=== PATIENT | female | born 1940 ===

== ENCOUNTER 2016-09-03 07:23 | Inpatient (IN) | payer MEDICARE ==
[2016-08-26 07:12] VITALS: BMI 27.4
[2016-09-03] MEDS ORDERED: Propofol 10 mg/ml Inj (20 ML) ONE (08:31)
[2016-09-03] MEDS ORDERED: Bupivacaine/Epi 0.25%-1:200,000 10 ml PF inj IJ ONE (08:33)
[2016-09-03] MEDS ORDERED: Methylene Blue 10 mg/ml (1ml) Inj ONE (08:33)
[2016-09-03] MEDS ORDERED: Ciprofloxacin 400mg/200ml D5W 0 MG/0 ML BAG IVPB ONE (08:34)
[2016-09-03] MEDS ORDERED: Gentamicin 80 mg in 0.9% NS 0 MG/0 ML BAG IVPB ONE (08:34)
[2016-09-03] MEDS ORDERED: Clindamycin 2% Vaginal Cream(40 gm) ONE (08:35)
[2016-09-03] MEDS ORDERED: Bacitracin 50,000 UNIT in Sodium Chloride 0.9% Irrig 1,000 ML IR SCH (09:00)
[2016-09-03] MEDS ORDERED: Lactated Ringer's 1,000 ML IV ONE ×2 (09:30→10:44)
[2016-09-03] MEDS ORDERED: metroNIDAZOLE IV 500 mg/100 ml 500 MG/100 ML BAG ONE (09:30)
[2016-09-03] MEDS ORDERED: Neostigmine Methylsulfate 3mg/3ml Syringe IV ONE (11:14)
--- NOTE | 2016-09-03 11:21 | PCM.SURG1 ---
Surgeon's Initial Post Op Note - Surgeon's Notes Surgeon: jordan dias md Sustainability Coach: imelda mane md Type of Anesthesia: General Endo, Local Pre-Operative Diagnosis: rectocele. cystocele. urinary incontinence. fecal incontinence. chronic pelvic pain Operative Findings: stage 4 rectocele. stage 2 cystocele. perineal laxity. normal bladder anatomy as per cysto. hypermobile urethra. Detail description of the procedure. DESCRIPTION: This is a 75 years old female with long-standing and worsening symptoms of rectocele, cystocele, and fecal smearing, urinary urgency and pelvic pain. The patient is reporting leakage of feces as well as urine upon any exertion, coughing sneezing as well as vaginal bulge and pressure in the pelvis. In addition, she is not able to defecate without the aid of her fingers extracting feces; splinlting. For the past several years, these symptoms of involuntary leakage of urine and vaginal pressure have been worsening; she describes these symptoms as debilitating and adversely affecting her quality of life. A comprehensive urinary incontinence workup was completed which included a TVUS, multichannel complex urodynamic study, urinalysis and cultures. The preoperative workup supports a diagnosis of stress urinary incontinence along with urgency and detrusor instability and symptomatic rectocele and fecal incontinence. The patient failed conservative management which included Kegels exercises as well as lifestyle changes and other pelvic floor rehabilitation exercises. A prolong and detailed discussion about conservative versus surgical management of urinary incontinence and rectocele and fecal incontinence was completed. The patient elected to proceed with surgical management of her symptomatic rectocele, enterocele, and cystocele , sphincter laxity and urinary incontinence. A decision was made to proceed with AP vaginal repair with colpopexy and mid-urethral sling procedure using polypropylene mesh material and sphincteroplasty. After a detailed discussion regarding the pros and cons of sling procedure and the utilization of polypropylene mesh material, all risks were reviewed including but not limited to, risk of infection, mesh erosion, postoperative pain and dyspareunia. In addition, the FDA warning about mesh utilization for prolapse and incontinence surgery was reviewed in details, and a detailed and specific written informed consent was obtained. The patient elected to proceed with a Midurethral sling and prolapse repair today fully understanding and accepting the risks associated with utilizing polypropylene mesh material. Other alternatives were also offered to the patient, including a biological graft such as porcine sling as well as the patient owns fascia for sling material and prolapse repair, she elected to proceed with a primary repair of her rectocele with no mesh as well as a polypropylene mesh sling despite all the associated risks. After proper consent was obtained from the patient, patient was taken to the operating room, placed in the dorsolithotomy position; general anesthesia was obtained without difficulty. She was placed in the dorsal lithotomy position, her legs were placed in adjustable Bao stirrups, and careful attention was placed not to over flex or over rotates the lower extremities and the hip or knee joints. Saul catheter was inserted under sterile conditions. She was prepped and draped appropriately for a posterior colporhaphy, sphincteroplasty and mid- urethral sling procedure. A posterior longitudinal incision was made from the perineal body to the vagina. A sagittal incision was made in the vaginal epithelium in the posterior compartment beginning at the forchettte, moving proximally towards the apex of the vagina. Lateral dissection underneath the epithelium was performed, leaving a thick flap between the vagina and rectum. The vaginal epithelium was undermined to the vaginal apex, exposing the underlying rectocele and posterior compartment defect. Prior to the repair of the posterior defect, the rectal external sphincter was dissected off and in an interrupted fashion, the muscle was imbricated in multiple suture in a circular fashion using 2-0 vicryl suture material. This provided support and reinforcement of a sphincter which was disrupted likely during a prior episiotomy in the past. The muscle was re-approximated and imbricated without tension. Next, the posterior defect in the posterior wall was identified and multiple interrupted sutures using o vicryl material was used. The rectovaginal fascia was re-approximated all the way extending to the apex of the vagina. The rectocele was reduced under the approximation of endopelvic fascia. Redundant vaginal mucosa was excised and the vaginal incision was then closed using a running 2-0 Vicryl ligature. Perineoorphy was completed by recreating the perineal body with multiple 0 vycryl suture in interrupted suture. Careful approximation of the vaginal mucosa was performed. The anterior vaginal wall over the Midurethral area was grasped with a pair of Allis clamps and tenting the vaginal wall from the underlying urethra. Local anesthetic solution of 0.25% Marcaine with epinephrine diluted 1:1 was used to infiltrate the periurethral space. A total of 20 cc was utilized. Using a scalpel, a Midurethral vertical incision about 1 cm was made through the vaginal epithelium and periurethral fascia. Careful lateral sharp dissection using Metzenbaum scissors towards the inferior pubic ramus to eventually allow the sling graft to lie flat against the urethra. Next, the sling mesh was loaded onto the needle tip. The needle tip was inserted through one side of the incision towards the medial edge of the obturator foramen approximately 45 degrees of the horizontal plane. Using an arching motion, the needle tip was advanced through pushing the obturator internus muscle. The needle was released from the graft and loaded on the other side of the sling ready for deployment to the contralateral side. Ensuring the sling is flat on the urethra and not twisted, the needle was advanced in an arching motion towards the obturator internus muscle on the opposite site. Attention was readdressed to allow a flat placement with tension- free sling on the midurethra region. Following saline irrigation and good hemostasis was noted, the vaginal mucosa was closed with 2- 0 Vicryl in a locking fashion. At this time, the Saul catheter was removed and a diagnostic cystoscopy was performed. The bladder was distended with about 300 cc of fluid. Both ureteral orifices were noted to be fluxing urine normally. The trigone was normal. There were no noted abnormalities with any evidence of any compromise of the lower urinary tract with mesh material, sutures or instruments. The patient emerged from general anesthesia without any difficulty. The patient was taken to the recovery room in stable condition. Prior to incision patient received prophylactic antibiotics, prior to closure sponge lap and needle counts are correct x2. The 2-inch iodoform gauze vaginal packing was then placed to prevent hematoma formation underneath the vaginal mucosa. Needle, sponge, and instrument counts were correct. Post-Operative Diagnosis: same Operation Performed: A/P repair. colpopexy extraperitoneal. midurethral sling. perineoorphy. sphinctroplasy. cystosocpy Specimen/Specimens Removed: vaginal mucosa Estimated Blood Loss: EBL {In ML}: 50 Blood Products Given: N/A Drains Used: No Drains Post-Op Condition: Good Date of Surgery/Procedure: 09/03/16 Time of Surgery/Procedure: 11:21
[2016-09-03] MEDS ORDERED: Oxycodone/Acetaminophen 5/325 mg Tab PO PRN (11:22)
[2016-09-03] MEDS ORDERED: Morphine 4 MG/ML VIAL IVP PRN (11:22)
[2016-09-03] MEDS ORDERED: Gentamicin 80 mg in 0.9% NS 100 ML IVPB ONE (11:22)
[2016-09-03] MEDS ORDERED: HYDROmorphone 0.5 mg/0.5 ml ISec IVP PRN (11:23)
[2016-09-03] MEDS ORDERED: metroNIDAZOLE IV 500 mg/100 ml 500 MG/100 ML BAG IVPB STA (12:15)
[2016-09-03] MEDS ORDERED: metroNIDAZOLE IV 500 mg/100 ml 500 MG/100 ML BAG IVPB SCH (14:00)
[2016-09-03] MEDS: Clindamycin 600mg/50ml D5W 600 MG/50 ML VIAL IVPB SCH ×2 (14:00→20:46)
[2016-09-03] MEDS: Sodium Chloride 0.9% 1,000 ML IV SCH (14:00)
[2016-09-03 14:54] VITALS: PULSE 60; RESP 18
[2016-09-03] MEDS: metroNIDAZOLE IV 500 mg/100 ml 500 MG/100 ML BAG IVPB SCH (17:40)
[2016-09-04] MEDS: metroNIDAZOLE IV 500 mg/100 ml 500 MG/100 ML BAG IVPB SCH ×2 (01:45→10:07)
[2016-09-04] MEDS: Clindamycin 600mg/50ml D5W 600 MG/50 ML VIAL IVPB SCH (04:52)
[2016-09-04] MEDS: Sodium Chloride 0.9% 1,000 ML IV SCH (06:07)
[2016-09-04 07:47] LABS: HEMATOCRIT 34.9 % (34.0-47.0); MEAN CELL VOLUME 92.7 fL (81.0-99.0); MEAN CORPUSCULAR HEMOGLOBIN 30.4 pg (27.0-31.0); MEAN CORPUSCULAR HGB CONC 32.8 g/dL (33.0-37.0); MEAN PLATELET VOLUME 10.2 fL (7.2-11.7); RED CELL DISTRIBUTION WIDTH 13.7 % (11.5-14.5)
[2016-09-04 07:55] LABS: WHITE BLOOD COUNT 12.8 K/uL (4.8-10.8)
[2016-09-04 17:38] VITALS: BP 109/58; TEMP 98.4; O2SAT 98
== END 2016-09-04 17:30 | disposition home or self-care (01) | DRG 747 ==
LOC: C.SDS 07:23 → C.4M 11:22 → MERGE 09-04 07:45
PROVIDERS: ADMIT Obstetrics & Gynecology; ATTEND Obstetrics & Gynecology
PROC: 0USG0ZZ Reposition Vagina, Open Approach (ICD-10-PCS; 2016-09-03)
PROC: 0TSD0ZZ Reposition Urethra, Open Approach (ICD-10-PCS; 2016-09-03)
PROC: 0TJB8ZZ Inspection of Bladder, Via Natural or Artificial Opening Endoscopic (ICD-10-PCS; 2016-09-03)
PROC: 0WQN0ZZ Repair Female Perineum, Open Approach (ICD-10-PCS; principal; 2016-09-03 09:55)
PROC: 0JQC0ZZ Repair Pelvic Region Subcutaneous Tissue and Fascia, Open Approach (ICD-10-PCS; 2016-09-03 09:55)
DX: N81.6 Rectocele (principal); N36.41 Hypermobility of urethra; N81.89 Other female genital prolapse; N81.10 Cystocele, unspecified; N39.41 Urge incontinence; N39.46 Mixed incontinence; N81.81 Perineocele; R15.2 Fecal urgency

== ENCOUNTER 2017-08-13 09:46 | Day surgery (SDC) | payer MEDICARE ==
[2017-08-05 09:20] VITALS: BMI 28.3
[2017-08-13] MEDS ORDERED: Clindamycin 2% Vaginal Cream(40 gm) ONE (11:19)
[2017-08-13] MEDS ORDERED: ceFAZolin 1 gm FROZEN Premix 0 GM/0 ML ML IVPB ONE (11:19)
[2017-08-13] MEDS ORDERED: Sodium Chloride 0.9% 20 ML IV ONE (11:19)
[2017-08-13] MEDS ORDERED: Bupivacaine-Epi 0.5%-1:200,000 PF Inj IJ ONE (11:21)
[2017-08-13] MEDS ORDERED: Bacitracin 50,000 UNIT in Sodium Chloride 0.9% Irrig 1,000 ML IR SCH (11:30)
[2017-08-13] MEDS ORDERED: Ciprofloxacin 400mg/200ml D5W 400 MG/200 ML BAG IVPB ONE (11:48)
[2017-08-13] MEDS ORDERED: Propofol 10 mg/ml Inj (20 ML) ONE (12:03)
[2017-08-13] MEDS ORDERED: Midazolam 2 MG/2 ML VIAL ONE (12:03)
--- NOTE | 2017-08-13 13:13 | PCM.OP ---
Operative Report - Operative Report Date of Surgery/Procedure: 08/13/17 Time of Surgery/Procedure: 13:10 Surgeon: Caridad Khan MD Scissors Grinder: none Anesthesia/Sedation: Gen with ET tube Pre-Operative Diagnosis: Abnormal vaginal bleeding. vaginal granuloma. Urethral polyp Post-Operative Diagnosis: Abnormal vaginal bleeding. vaginal granuloma. Urethral polyp Indication for Surgery: worsening chronic abnormal vaginal bleeding. large vaginal grnulation tissue on posterior vaginal wall. large aborting urethral polyp with urinary urgency Operative Findings: worsening chronic abnormal vaginal bleeding. large vaginal grnulation tissue on posterior vaginal wall. large aborting urethral polyp with urinary urgency Procedure/Operation Description: Excision of vaginal wall granuloma. Excisoin of urethral polyp. Diagnostic cystoscopy. Detail of operative report. This is a 76 years old female with severe chronic pelvic pain, significant abnormal vaginal bleeding, and mixed urinary incontinence. The patient completed a robotic-assisted hysterectomy and a recent past and developed a granuloma along the posterior vaginal wall as well as colpotomy incision which lead to abnormal vaginal bleeding despite conservative management following surgery. In addition, the patient had a urethral polyp likely leading to urinary frequency and urgency. A decision was finally made to proceed with an excision of vaginal granuloma as well as excision of urethral polyp as well as diagnostic cystoscopy. A detailed description of this procedure was given to the patient, other alternative surgical therapies were reviewed, all risks and benefits of this surgical modality was reviewed, and printed material was also given to the patient regarding vaginal surgery. The patient fully understood all the risks and benefits and elected to proceed with this proposed procedure. After proper consent was obtained from the patient was taken to the operating room, proper patient identification was completed. She was placed in dorsal lithotomy position; general anesthesia was induced without difficulty. Her legs were placed in adjustable Bao stirrups. Careful attention was placed avoiding over-flexion or rotation the lower extremities at the hip or the knee joints. She was prepped and draped appropriately for a vaginal procedure. Saul catheter was inserted under sterile conditions. Local anesthetic solution of cortical percent Marcaine with epinephrine diluted 121 was used to infiltrate the area of the posterior vaginal wall from which to granuloma was originating. An elliptical incision around the granuloma was made, and in a meticulous fashion to granuloma was excised utilizing a scalpel as well as Bovie cautery device. This granuloma was labeled appropriately and sent to pathology. Then narrowed base of this granuloma only required several interrupted sutures utilizing 2-0 Vicryl sutures to close this defect. Excellent hemostasis was noted. Attention was then turned to the patients urethra where an aborting polyp was noted. Prior to this excision of polyp diagnostic cystoscopy was completed, which showed normal bladder anatomy, and no other pathology noted inside the bladder as well as along the urethra. The polyp aborting from the urethral meatus was originating from the urethral vaginal junction. Local anesthetic solution was utilized to infiltrate the base of the polyp. Saul catheter was inserted and kept in situ during the excision of this polyp. Sharp and blunt dissection was utilized to carefully excise this polyp. Multiple interrupted suture material utilizing 5-0 Monocryl in interrupted fashion was utilized to repair the incision sites of this polyp. Careful attention was placed to avoid narrowing of the urethral meatus. Excellent hemostasis was noted throughout the procedure. Due to the complexity of this procedure, a repeat diagnostic cystoscopy was completed following the repair as well as excision of polyp and granuloma. The Saul catheter was removed, the bladder was distended with approximately 350 cc of normal saline. A 30 degree cystoscope was introduced and a survey of the bladder anatomy was completed. The base, and the dome of the bladder appeared normal, both ureteral orifices appeared normal and were efluxing urine freely. The urethra appeared normal. A Saul catheter was reinserted. Vaginal packing was inserted to be removed the next morning. Patient emerged from general anesthesia without difficulty, and was taken to recovery room in stable condition. Prior to incision the patient received antibiotics, prior to closure sponge lap and needle counts were correct x2 . Estimated Blood Loss: 5 Blood Replaced: none Sponge/Instrument Count: count correct times 2 Drains: none Complications: none Specimen: vaginal granuloma. urethral polyp Discharge & Condition: as per criteria
[2017-08-13] MEDS ORDERED: Sodium Chloride 0.9% 1,000 ML IV SCH (13:15)
[2017-08-13] MEDS ORDERED: Morphine 4 MG/ML VIAL IVP PRN (13:15)
[2017-08-13] MEDS ORDERED: Oxycodone/Acetaminophen 5/325 mg Tab PO PRN (13:15)
[2017-08-13] MEDS: HYDROmorphone 0.5 mg/0.5 ml ISec IVP PRN ×2 (13:35→13:44)
[2017-08-13 14:28] VITALS: PULSE 70
[2017-08-13] MEDS ORDERED: DiphenhydrAMINE 50 mg/ml Inj ONE (14:35)
[2017-08-13] MEDS ORDERED: DiphenhydrAMINE 50 mg/ml Inj IVP STA (14:36)
[2017-08-13 17:16] VITALS: BP 126/56; RESP 20; TEMP 97.8; O2SAT 99
== END 2017-08-13 17:18 | disposition home or self-care (01) ==
LOC: C.SDS 09:46
PROVIDERS: ATTEND Obstetrics & Gynecology
DX: N36.2 Urethral caruncle (principal); N93.9 Abnormal uterine and vaginal bleeding, unspecified; A58 Granuloma inguinale; R35.0 Frequency of micturition
CPT/HCPCS: 53260; 58999; 88305; C2615; J0744; J1170; J1200; J2001; J2250; J2405; J2704; J3010

== ENCOUNTER 2017-11-18 07:33 | Observation (INO) | payer MEDICARE ==
[2017-11-18 07:33] VITALS: BMI 28.3
[2017-11-18] MEDS ORDERED: Sodium Chloride 0.9% 1,000 ML IV ONE (08:21)
[2017-11-18 09:09] LABS: BASO % 0.4 % (0.0-2.0); EOS # 0.1 K/uL (0.0-0.7); EOS % 1.2 % (0.0-4.0); HEMOGLOBIN 13.5 g/dL (11.0-16.0); LYMPH # 1.6 K/uL (1.0-4.3); LYMPH % 18.8 % (20.0-40.0); MEAN CELL VOLUME 91.8 fL (81.0-99.0); MEAN CORPUSCULAR HEMOGLOBIN 30.8 pg (27.0-31.0); MEAN CORPUSCULAR HGB CONC 33.5 g/dL (33.0-37.0); MEAN PLATELET VOLUME 9.8 fL (7.2-11.7); MONO # 0.4 K/uL (0.0-0.8); MONO % 4.2 % (0.0-10.0); NEUT # 6.4 K/uL (1.8-7.0); NEUT % 75.4 % (50.0-75.0); RBC 4.37 Mil/uL (3.80-5.20); RED CELL DISTRIBUTION WIDTH 12.6 % (11.5-14.5); WHITE BLOOD COUNT 8.5 K/uL (4.8-10.8)
[2017-11-18] MEDS ORDERED: Sodium Chloride 0.9% 1,000 ML ONE (09:15)
[2017-11-18 09:19] LABS: CALCIUM 9.3 mg/dl (8.6-10.4); GFR NON-AFRICAN AMERICAN > 60
[2017-11-18 09:20] LABS: ALB/GLOB RATIO 1.4 (1.0-2.1); ALBUMIN 4.3 g/dL (3.5-5.0); ALT/SGPT 23 U/L (9-52); AST/SGOT 38 U/L (14-36); BLOOD UREA NITROGEN 16 mg/dL (7-17)
[2017-11-18 09:20] LABS: SQUAMOUS EPITHIAL 26 /hpf (0-5); URINE BACTERIA OCC (<OCC); URINE BILIRUBIN NEGATIVE (NEGATIVE); URINE BLOOD 3+ (NEGATIVE); URINE CLARITY Hazy (Clear); URINE COLOR Yellow (YELLOW); URINE GLUCOSE (UA) NORMAL (Normal); URINE LEUKOCYTE ESTERASE 3+ Leu/uL (Negative); URINE PROTEIN NEGATIVE (NEGATIVE); URINE UROBILINOGEN NORMAL mg/dL (0.2-1.0)
--- NOTE | 2017-11-18 09:59 | CT ---
Date of service: 11/18/2017 PROCEDURE: CT HEAD WITHOUT CONTRAST. HISTORY: lightheaded, dizzy. vomiting COMPARISON: None available. TECHNIQUE: Axial computed tomography images were obtained through the head/brain without intravenous contrast. Radiation dose: Total exam DLP = 878.71 mGy-cm. This CT exam was performed using one or more of the following dose reduction techniques: Automated exposure control, adjustment of the mA and/or kV according to patient size, and/or use of iterative reconstruction technique. FINDINGS: HEMORRHAGE: No intracranial hemorrhage. BRAIN: Normal melara-white matter differentiation and density are appreciated throughout the cerebrum and cerebellum with the brainstem appearing unremarkable as well. There is no mass effect. There is no suspicious extra-axial fluid collection and the midline brain anatomy appears diffusely unremarkable. VENTRICLES: Unremarkable. No hydrocephalus. CALVARIUM: Unremarkable. PARANASAL SINUSES: Unremarkable as visualized. No significant inflammatory changes. MASTOID AIR CELLS: Unremarkable as visualized. No inflammatory changes. OTHER FINDINGS: None. IMPRESSION: Unremarkable noncontrast head CT. Clinically correlate with any for potential follow-up CT or MRI.
--- NOTE | 2017-11-18 10:03 | C.PDOC ---
History Of Present Illness The patient is a 77-year-old female, with pacemaker, who underwent extraction of her left upper tooth yesterday. Patient states she took Tramadol at around 1930 yesterday and again at 0100 today for the pain. Patient was asymptomatic upon waking this morning, but then developed lightheadedness, nausea and generalized weakness as the day progressed. Patient also reports having several episodes of vomiting. She denies abdominal pain, chest pain and shortness of breath. Time Seen by Provider: 11/18/17 07:52 Chief Complaint (Nursing): Weakness/Neurological Deficit History Per: Patient History/Exam Limitations: no limitations Onset/Duration Of Symptoms: Hrs Current Symptoms Are (Timing): Still Present Associated Symptoms Preceding Syncopal Episode: No Predromal Symptoms (Sudden Onset) Possible Causative Factor(s): New Medications Additional History Per: Patient Past Medical History Reviewed: Historical Data, Nursing Documentation, Vital Signs Vital Signs: Last Vital Signs Temp 98.1 F 11/19/17 07:00 Pulse 70 11/19/17 08:02 Resp 20 11/19/17 07:00 BP 122/74 11/19/17 07:00 Pulse Ox 95 11/20/17 09:36 - Medical History PMH: Atrial Fibrillation, Cardia Arrhythmia (atrial fibrillation dx 3 yrs ago), HTN Surgical History: Pacemaker - [facility] Procedures CYSTOSCOPY NEC (07/13/14) INSPECTION OF BLADDER, ENDO (09/03/16) REPAIR FEMALE PERINEUM, OPEN APPROACH (09/03/16) REPAIR PELVIC SUBCU/FASCIA, OPEN APPROACH (09/03/16) REPOSITION URETHRA, OPEN APPROACH (09/03/16) REPOSITION VAGINA, OPEN APPROACH (09/03/16) Family History: States: Unknown Family Hx - Social History Hx Alcohol Use: No Hx Substance Use: No - Immunization History Hx Tetanus Toxoid Vaccination: No Review Of Systems Constitutional: Positive for: Weakness Cardiovascular: Negative for: Chest Pain Respiratory: Negative for: Shortness of Breath Gastrointestinal: Positive for: Nausea, Vomiting. Negative for: Abdominal Pain Neurological: Positive for: Other (lightheadedness ) Physical Exam - Physical Exam Appears: Non-toxic, No Acute Distress, Other (fatigued ) Skin: Normal Color, Warm, Dry Head: Atraumatic, Normacephalic Eye(s): bilateral: Normal Inspection Ear(s): Bilateral: Normal Oral Mucosa: Dry Teeth: Other (left upper tooth extracted) Gingiva: No Swelling Neck: Supple Chest: Symmetrical, No Deformity, No Tenderness, Other (pacemaker noted to left chest wall ) Cardiovascular: Rhythm Regular, No Murmur Respiratory: Normal Breath Sounds, No Rales, No Rhonchi, No Wheezing Gastrointestinal/Abdominal: Soft, No Tenderness, No Guarding, No Rebound Extremity: Normal ROM, Capillary Refill (less than 2 seconds ) Neurological/Psych: Oriented x3, Normal Speech, Normal Cognition, Normal Cranial Nerves, No Cerebellar Signs, Normal Motor, Normal Sensation, Other ( normal [id number], normal heel- kang) ED Course And Treatment - Laboratory Results Result Diagrams: 11/19/17 11:17 11/19/17 06:35 Interpretation Of ECG: Dual-paced rhythm at 71bpm. Rate From EC O2 Sat by Pulse Oximetry: 95 (on RA) Pulse Ox Interpretation: Normal - CT Scan/US CT Head Other Rad Studies (CT/US): Read By Radiologist, Radiology Report Reviewed CT/US Interpretation: PROCEDURE: CT HEAD WITHOUT CONTRAST. HISTORY: lightheaded, dizzy. vomiting. COMPARISON: None available. TECHNIQUE: Axial computed tomography images were obtained through the head/brain without intravenous contrast. Radiation dose: Total exam DLP = 878.71 mGy-cm. This CT exam was performed using one or more of the following dose reduction techniques: Automated exposure control, adjustment of the mA and/or kV according to patient size, and/or use of iterative reconstruction technique. FINDINGS: HEMORRHAGE: No intracranial hemorrhage. BRAIN: Normal melara-white matter differentiation and density are appreciated throughout the cerebrum and cerebellum with the brainstem appearing unremarkable as well. There is no mass effect. There is no suspicious extra-axial fluid collection and the midline brain anatomy appears diffusely unremarkable. VENTRICLES: Unremarkable. No hydrocephalus. CALVARIUM: Unremarkable. PARANASAL SINUSES: Unremarkable as visualized. No significant inflammatory changes. MASTOID AIR CELLS: Unremarkable as visualized. No inflammatory changes. OTHER FINDINGS: None. IMPRESSION: Unremarkable noncontrast head CT. Clinically correlate with any for potential follow-up CT or MRI. Medical Decision Making Medical Decision Making: Impression: 77 year old female with lighteadedness, generalized weakness, nausea , vomiting Plan: * bloodwork * urinalysus * CT Head * EKG * reassess and disposition Progress: bloodwork, urinalysis, CT Head and EKG ordered and reviewed. Bloodwork results are indicative of urinary tract infection. Case discussed with Dr Taylor, will admit to tele for lightheadedness and Urinary tract infection. Disposition Discussed With .: Hieu Taylor Doctor Will See Patient In The: Hospital - Disposition Disposition: HOSPITALIZED Disposition Time: 11:48 Condition: GOOD - Clinical Impression Clinical Impression: Lightheadedness, UTI (urinary tract infection), Dizziness - PA / IMAGING SERVICES DIRECTOR / Resident Statement MD/DO has reviewed & agrees with the documentation as recorded. - Scribe Statement The provider has reviewed the documentation as recorded by the Scribe (Nikki Pepe) All medical record entries made by the Scribe were at my direction and personally dictated by me. I have reviewed the chart and agree that the record accurately reflects my personal performance of the history, physical exam, medical decision making, and the department course for this patient. I have also personally directed, reviewed, and agree with the discharge instructions and disposition.
[2017-11-18] MEDS ORDERED: Ciprofloxacin 200mg/100ml D5W 100 ML IVPB STA (11:46)
[2017-11-18] MEDS ORDERED: Ciprofloxacin 400mg/200ml D5W 400 MG/200 ML BAG IVPB SCH (14:30)
[2017-11-18 14:59] VITALS: RESP 20
--- NOTE | 2017-11-18 16:07 | CP.PCM.HP ---
<Aurelio Roman - Last Filed: 11/18/17 16:33> History of Present Illness - History of Present Illness History of Present Illness: PGY-1 History and Physical [address] Dr[address] Taylor Patient is a 77 year old female with a past medical history of HTN and Atrial Fibrillation (s/p pacemaker placement January 2017) who presents to the ED with chief complaint of dizziness, nausea, and vomiting . Pt reports that last night she had a tooth pulled by her dentist because it was cracked through to the root. She was given Tramadol for pain relief which she took last night around 730 pm, and at 130 am when she woke from sleep secondary to tooth ache. This was her first time taking Tramadol. She had last eaten prior to her tooth extraction, around lunch time. This morning at 6 am after she took a shower, she had sudden onset of dizziness feeling as though she was spinning and also feeling lighteaded and faint, did not pass out. This was associated with nausea and non-bloody, non-bilious vomiting x 6 episodes. She notes the dizziness is worse with movement and improved with laying down. She denies chest pain, abdominal pain, palpitations, fevers, chills, headaches, changes in vision, new trauma, diarrhea, constipation, bloody stools, hematuria, urinary urgency or new/worsening urinary frequency. She has chronic urinary frequency throughout the night (x several months). At time of admission she reports that she is dizzy, but the sensation is not as severe as it was upon arrival in the ED prior to treatment with fluids and Zofran. She notes the pain in her tooth has not recurred since her last dose of Tramadol at 130 am. PMH: HTN, Atrial Fibrillation (Dual chamber PM placed January 2017) Medications: Amlodipine 2.5 mg PO qd, Vitamin D 50,000 q7d, previously on Savaysa for AFib PSH: Bladder prolapse repair, Hysterectomy Social History: Denies smoking (quit when young), alcohol, drugs Family History: DM (mom and 4 brothers) Allergies: PCN (rash/weakness) Present on Admission - Present on Admission Any Indicators Present on Admission: No Review of Systems - Constitutional Constitutional: Fatigue, Weakness. absent: Fever, Headache - EENT Eyes: absent: Blurred Vision, Change in Vision Nose/Mouth/Throat: absent: Nasal Congestion, Nasal Discharge, Sinus Pain - Cardiovascular Cardiovascular: absent: Chest Pain, Dyspnea, Dyspnea on Exertion - Respiratory Respiratory: absent: Cough, Dyspnea - Gastrointestinal Gastrointestinal: Nausea, Vomiting. absent: Abdominal Pain, Diarrhea Additional comments: Denies flank or suprapubic pain - Genitourinary Genitourinary: Urinary Frequency (+urinary frequency for several months). absent: Change in Urinary Stream, Difficulty Urinating, Dysuria, Flank Pain, Pyuria, Urinary Urgency, Freq UTI - Musculoskeletal Musculoskeletal: absent: Back Pain, Joint Swelling, Muscle Weakness, Numbness, Tingling - Neurological Neurological: Dizziness, Weakness. absent: Abnormal Gait, Confusion, Numbness, Headaches, Loss of Vision, Memory Loss, Syncope (+pt has felt faint, but did not syncopize), Tingling, Tremor - Psychiatric Psychiatric: absent: Anxiety, Depression Past Patient History - Infectious Disease Hx of Infectious Diseases: None - Past Medical History & Family History Past Medical History?: Yes - Past Social History Smoking Status: Never Smoked - CARDIAC Hx Atrial Fibrillation: Yes Hx Cardia Arrhythmia: Yes (atrial fibrillation dx 3 yrs ago) Hx Hypertension: Yes Hx Pacemaker: Yes - HEMATOLOGICAL/ONCOLOGICAL Hx Blood Disorders: Yes Hx Shingles: Yes - MUSCULOSKELETAL/RHEUMATOLOGICAL Hx Musculoskeletal Disorders: No - GASTROINTESTINAL Hx Gastrointestinal Disorders: No - GENITOURINARY/GYNECOLOGICAL Hx Genitourinary Disorders: Yes Hx Incontinence: Yes (NO LONGER) - PSYCHIATRIC Hx Substance Use: No - SURGICAL HISTORY Hx Surgeries: Yes Hx Hysterectomy: Yes Other/Comment: laser varicose vein sx cystoscopy A/P REPAIR - ANESTHESIA Hx Anesthesia: Yes Hx Anesthesia Reactions: No Hx Malignant Hyperthermia: No Meds Allergies/Adverse Reactions: Allergies Allergy/AdvReac Type Severity Reaction Status Date / Time FISH Allergy Intermediate RASH Verified 11/18/17 07:51 Penicillins Allergy RASH Verified 11/18/17 07:51 hydromorphone AdvReac ITCHING Verified 11/18/17 07:51 SEAFOOD Allergy Intermediate RASH Uncoded 11/18/17 07:51 Physical Exam - Constitutional Appears: Non-toxic, No Acute Distress - Head Exam Head Exam: ATRAUMATIC, NORMAL INSPECTION - Eye Exam Eye Exam: EOMI, Normal appearance Pupil Exam: NORMAL ACCOMODATION, PERRL - ENT Exam ENT Exam: Mucous Membranes Moist, Normal Exam - Respiratory Exam Respiratory Exam: Clear to Auscultation Bilateral, NORMAL BREATHING PATTERN. absent: Decreased Breath Sounds - Cardiovascular Exam Cardiovascular Exam: REGULAR RHYTHM, +S1, +S2 - GI/Abdominal Exam GI & Abdominal Exam: Normal Bowel Sounds, Soft. absent: Tenderness - Extremities Exam Extremities exam: Positive for: normal capillary refill, normal inspection, pedal pulses present. Negative for: pedal edema - Neurological Exam Neurological exam: Alert, CN II-XII Intact, Normal Gait, Oriented x3, Reflexes Normal Additional comments: +motor strength fully intact, no pronator drift, normal finger to nose - Psychiatric Exam Psychiatric exam: Normal Affect, Normal Mood - Skin Skin Exam: Dry, Intact, Normal Color, Warm Results - Vital Signs Recent Vital Signs: Last Vital Signs Temp 98.2 F 11/18/17 15:38 Pulse 74 11/18/17 15:38 Resp 20 11/18/17 15:38 BP 123/73 11/18/17 15:38 Pulse Ox 96 11/18/17 15:38 - Labs Result Diagrams: 11/18/17 08:59 11/18/17 08:59 Labs: Laboratory Results - last 24 hr 11/18/17 11/18/17 11/18/17 07:41 08:59 08:59 WBC 8.5 RBC 4.37 Hgb 13.5 Hct 40.1 MCV 91.8 MCH 30.8 MCHC 33.5 RDW 12.6 Plt Count 220 MPV 9.8 Neut % (Auto) 75.4 H Lymph % (Auto) 18.8 L [place] % (Auto) 4.2 Eos % (Auto) 1.2 Baso % (Auto) 0.4 Neut # (Auto) 6.4 Lymph # (Auto) 1.6 [place] # (Auto) 0.4 Eos # (Auto) 0.1 Baso # (Auto) 0.0 Sodium 139 Potassium 4.6 Chloride 103 Carbon Dioxide 25 Anion Gap 15 BUN 16 Creatinine 0.5 L Est GFR ( Amer) > 60 Est GFR (Non-Af Amer) > 60 POC Glucose (mg/dL) 153 H Random Glucose 142 H Calcium 9.3 Total Bilirubin 1.6 H AST 38 H ALT 23 Alkaline Phosphatase 94 Troponin I < 0.0120 Total Protein 7.5 Albumin 4.3 Globulin 3.1 Albumin/Globulin Ratio 1.4 Urine Color Urine Clarity Urine pH Ur Specific [place] Urine Protein Urine Glucose (UA) Urine Ketones Urine Blood Urine Nitrate Urine Bilirubin Urine Urobilinogen Ur Leukocyte Esterase Urine WBC (Auto) Urine RBC (Auto) Ur Squamous Epith Cells Urine Bacteria 11/18/17 09:02 WBC RBC Hgb Hct MCV MCH MCHC RDW Plt Count MPV Neut % (Auto) Lymph % (Auto) [place] % (Auto) Eos % (Auto) Baso % (Auto) Neut # (Auto) Lymph # (Auto) [place] # (Auto) Eos # (Auto) Baso # (Auto) Sodium Potassium Chloride Carbon Dioxide Anion Gap BUN Creatinine Est GFR ( Amer) Est GFR (Non-Af Amer) POC Glucose (mg/dL) Random Glucose Calcium Total Bilirubin AST ALT Alkaline Phosphatase Troponin I Total Protein Albumin Globulin Albumin/Globulin Ratio Urine Color Yellow Urine Clarity Hazy Urine pH 7.0 Ur Specific [place] 1.012 Urine Protein Negative Urine Glucose (UA) Normal Urine Ketones Trace Urine Blood 3+ H Urine Nitrate Negative Urine Bilirubin Negative Urine Urobilinogen Normal Ur Leukocyte Esterase 3+ H Urine WBC (Auto) 23 H Urine RBC (Auto) 42 H Ur Squamous Epith Cells 26 H Urine Bacteria Occ H Assessment & Plan - Assessment and Plan (Free Text) Assessment: 1) Dizziness in patient with history of Atrial Fibrillation with dual chamber PM placed 01/2017 - IV Fluids at 80 mls/hour - Troponin x1 < 0.0120; PEREZ x 2 ordered q6h - EKG x 1 reviewed (paced rhythm evident); EKG x 2 q6h hours ordered - CT head reviewed - Unremarkable study with no evidence of hemorrhage - Cardiology Consult placed to Dr. Malcolm 2) Nausea - Zofran 4 mg PO q6h PRN 3) UTI - Ciprofloxacin 400 mg IV q12h scheduled (started 11/18/2017; to be completed 02/2018) 4) HTN - Amlodipine 2.5 mg PO qd 5) Vitamin D deficiency - Vitamin D 50,000 units q7d 6) Prophylaxis - DVT - Lovenox 40 sc qd scheduled, SCDs Assessment/plan discussed with Dr. Claudia Roman, PGY-1 <Hieu Taylor - Last Filed: 11/18/17 18:44> Results - Vital Signs Recent Vital Signs: Last Vital Signs Temp 98.2 F 11/18/17 15:38 Pulse 74 11/18/17 15:38 Resp 20 11/18/17 15:38 BP 123/73 11/18/17 15:38 Pulse Ox 96 11/18/17 15:38 - Labs Result Diagrams: 11/18/17 08:59 11/18/17 08:59 Labs: Laboratory Results - last 24 hr 11/18/17 11/18/17 11/18/17 07:41 08:59 08:59 WBC 8.5 RBC 4.37 Hgb 13.5 Hct 40.1 MCV 91.8 MCH 30.8 MCHC 33.5 RDW 12.6 Plt Count 220 MPV 9.8 Neut % (Auto) 75.4 H Lymph % (Auto) 18.8 L [place] % (Auto) 4.2 Eos % (Auto) 1.2 Baso % (Auto) 0.4 Neut # (Auto) 6.4 Lymph # (Auto) 1.6 [place] # (Auto) 0.4 Eos # (Auto) 0.1 Baso # (Auto) 0.0 Sodium 139 Potassium 4.6 Chloride 103 Carbon Dioxide 25 Anion Gap 15 BUN 16 Creatinine 0.5 L Est GFR ( Amer) > 60 Est GFR (Non-Af Amer) > 60 POC Glucose (mg/dL) 153 H Random Glucose 142 H Calcium 9.3 Total Bilirubin 1.6 H AST 38 H ALT 23 Alkaline Phosphatase 94 Troponin I < 0.0120 Total Protein 7.5 Albumin 4.3 Globulin 3.1 Albumin/Globulin Ratio 1.4 TSH 3rd Generation Urine Color Urine Clarity Urine pH Ur Specific [place] Urine Protein Urine Glucose (UA) Urine Ketones Urine Blood Urine Nitrate Urine Bilirubin Urine Urobilinogen Ur Leukocyte Esterase Urine WBC (Auto) Urine RBC (Auto) Ur Squamous Epith Cells Urine Bacteria 11/18/17 11/18/17 09:02 16:29 WBC RBC Hgb Hct MCV MCH MCHC RDW Plt Count MPV Neut % (Auto) Lymph % (Auto) [place] % (Auto) Eos % (Auto) Baso % (Auto) Neut # (Auto) Lymph # (Auto) [place] # (Auto) Eos # (Auto) Baso # (Auto) Sodium Potassium Chloride Carbon Dioxide Anion Gap BUN Creatinine Est GFR ( Amer) Est GFR (Non-Af Amer) POC Glucose (mg/dL) Random Glucose Calcium Total Bilirubin AST ALT Alkaline Phosphatase Troponin I < 0.0120 Total Protein Albumin Globulin Albumin/Globulin Ratio TSH 3rd Generation 0.26 L Urine Color Yellow Urine Clarity Hazy Urine pH 7.0 Ur Specific [place] 1.012 Urine Protein Negative Urine Glucose (UA) Normal Urine Ketones Trace Urine Blood 3+ H Urine Nitrate Negative Urine Bilirubin Negative Urine Urobilinogen Normal Ur Leukocyte Esterase 3+ H Urine WBC (Auto) 23 H Urine RBC (Auto) 42 H Ur Squamous Epith Cells 26 H Urine Bacteria Occ H Attending/Attestation - Attestation I have personally seen and examined this patient.: Yes I have fully participated in the care of the patient.: Yes I have reviewed all pertinent clinical information: Yes Notes (Text): Medical attending: Patient was seen and examined by me, reviewed the above note by the director biomedical engineering and agree with the above note. This is a very nice 77-year-old female who has a history of atrial fibrillation , and a AICD/defibrillator who comes to us due to nausea lightheadedness and sensation of spinning room. She reported that previously she was feeling fine and then yesterday had a trip to the dentist and had a tooth pulled. She received tramadol for pain and she took that and she explains to us that she's never taken tramadol before. And later on that night that is when she woke up due to the nausea lightheadedness and sensation of spinning room. Her lab work is stable, a UA was done and the emergency room and the emergency room tried to to sell it to me that the patient had a UTI. It may be that the patient does have a UTI however the UA sample was very contaminated with a heavy amount squamous cells. We are can place the patient on antibiotics however we need to repeat a UA before much better catch. I understand the patient just had the pacer/aicd placed in not too long ago. Were try to see if we can get her interactive media designer to come and evaluate the patient in case she had an event with her device overnight Thank you very much, Hieu Taylor
[2017-11-18] MEDS: Sodium Chloride 0.9% 500 ML IV SCH ×2 (16:29→22:53)
--- NOTE | 2017-11-18 17:12 | CP.PCM.CON ---
History of Present Illness - History of Present Illness History of Present Illness: I was asked to see patient by Dr Taylor. Patient is a 77 year old female with a history of atrial fibrillation, s/p PPM HTN who presents with dizziness. The patient had a recent tooth extraction, and was given Tramadol in case of pain. The patient took medication on 2 separate occasions, and awoke with lightheadedness and dizziness. The patient was brought to the hospital for further management. She currently denies chest pain or dyspnea Review of Systems - Constitutional Constitutional: Weakness - EENT Eyes: absent: As Per HPI, Blind Spots, Blurred Vision, Change in Vision, Decreased Night Vision, Diplopia, Discharge, Dry Eye, Exophthalmos, Floaters, Irritation, Itchy Eyes, Loss of Peripheral Vision, Pain, Photophobia, Requires Corrective Lenses, Sees Flashes, Spots in Vision, Tunnel Vision, Other Visual Disturbances, Loss of Vision, Other Ears: absent: As Per HPI, Decreased Hearing, Ear Discharge, Ear Pain, Tinnitus, Abnormal Hearing, Disequilibrium, Dizziness, Other Nose/Mouth/Throat: absent: As Per HPI, Epistaxis, Nasal Congestion, Nasal Discharge, Nasal Obstruction, Nasal Trauma, Nose Pain, Post Nasal Drip, Sinus Pain, Sinus Pressure, Bleeding Gums, Change in Voice, Dental Pain, Dry Mouth, Dysphagia, Halitosis, Hoarsness, Lip Swelling, Mouth Lesions, Mouth Pain, Odynophagia, Sore Throat, Throat Swelling, Tongue Swelling, Facial Pain, Neck Pain, Neck Mass, Other - Breasts Breasts: absent: As Per HPI, Change in Shape, Mass, Pain, Nipple Discharge, Nipple Inversion, Skin Changes, Swelling, Other - Cardiovascular Cardiovascular: absent: As Per HPI, Acrocyanosis, Chest Pain, Chest Pain at Rest , Chest Pain with Activity, Claudication, Diaphoresis, Dyspnea, Dyspnea on Exertion, Edema, Irregular Heart Rhythm, Pain Radiating to Arm/Neck/Jaw, Leg Edema, Leg Ulcers, Lightheadedness, Orthopnea, Palpitations, Paroxysmal Nocturnal Dyspnea, Pedal Edema, Radiating Pain, Rapid Heart Rate, Slow Heart Rate, Syncope, Other - Respiratory Respiratory: absent: As Per HPI, Cough, Dyspnea, Hemoptysis, Dyspnea on Exertion , Wheezing, Snoring, Stridor, Pain on Inspiration, Chest Congestion, Excessive Mucous Production, Change in Mucous Color, Pain with Coughing, Other - Gastrointestinal Gastrointestinal: absent: As Per HPI, Abdominal Pain, Belching, Bloating, Change in Bowel Habits, Change in Stool Character, Coffee Ground Emesis, Constipation, Cramping, Diarrhea, Dyspepsia, Dysphagia, Early Satiety, Excessive Flatus, Fecal Incontinence, Heartburn, Hematemesis, Hematochezia, Loose Stools, Melena, Nausea, Odynophagia, Temesmus, Vomiting, Other - Genitourinary Genitourinary: absent: As Per HPI, Change in Urinary Stream, Difficulty Urinating, Dysuria, Flank Pain, Hematuria, Pyuria, Nocturia, Urinary Incontinence, Urinary Frequency, Urinary Hesitance, Urinary Urgency, Voiding Freq/Small Amts, Freq UTI, Hx Renal/Bladder Calculi, Hx /Renal Surgery, Bladder Distension, Other - Menstruation Menstruation: absent: As Per HPI, Amenorrhea, Amenorrhea/ Control, Currently Menstual, Cycle <21 Days, Cycle >35 Days, Cycle Variable, Menses 1-7 Days, Menses >/= 8 Days, Menses Variable, Cycle > 4 Weeks Between, No Menses for 6 Months, Heavy Menses, Light Menses, Normal Menses, Spotting Between Cycles , S/P Hysterectomy, Menopausal, Post Menopausal, Premenarche, Abnormal Vaginal Bleeding, Dysmenorrhea, Other - Musculoskeletal Musculoskeletal: absent: As Per HPI, Abnormal Gait, Arthralgias, Atrophy, Back Pain, Deformity, Joint Swelling, Limited Range of Motion, Loss of Height, Muscle Cramps, Muscle Weakness, Myalgias, Neck Pain, Numbness, Radiating Pain into Limb, Stiffness, Tingling, Other - Integumentary Integumentary: absent: As Per HPI, Acne, Alopecia, Bleeding Lesions, Change in Hair, Change in Nails, Change in Pigmentation, Changing Lesions, Dry Skin, Erythema, Furuncle, Hirsutism, Lesions, New Lesions, Non-Healing Lesions, Photosensitivity, Pruritus, Rash, Skin Pain, Skin Ulcer, Sores, Striae, Swelling , Unusual Bruising, Wounds, Jaundice, Other - Neurological Neurological: Disequilibrium - Psychiatric Psychiatric: absent: As Per HPI, Abnormal Sleep Pattern, Anhedonia, Anxiety, Auditory Hallucinations, Behavioral Changes, Change in Appetite, Change in Libido, Confusion, Depression, Difficulty Concentrating, Hallucinations, Homicidal Ideation, Hopelessness, Irritability, Memory Loss, Mood Swings, Panic Attacks, Paranoia, Suicidal Ideation, Visual Hallucinations, Tactile Hallucinations, Other - Endocrine Endocrine: absent: As Per HPI, Change in Body Appearance, Change in Libido, Cold Intolorance, Deepening of Voice, Excessive Sweating, Fatigue, Flushing, Heat Intolorance, Increase in Ring/Shoe/Hat Size, Palpitations, Polydipsia, Polyphagia, Polyuria, Other - Hematologic/Lymphatic Hematologic: absent: As Per HPI, Easy Bleeding, Easy Bruising, Lymphadenopathy, Other Past Patient History - Infectious Disease Hx of Infectious Diseases: None - Past Medical History & Family History Past Medical History?: Yes - Past Social History Smoking Status: Never Smoked - CARDIAC Hx Atrial Fibrillation: Yes Hx Cardia Arrhythmia: Yes (atrial fibrillation dx 3 yrs ago) Hx Hypertension: Yes Hx Pacemaker: Yes - HEMATOLOGICAL/ONCOLOGICAL Hx Blood Disorders: Yes Hx Shingles: Yes - MUSCULOSKELETAL/RHEUMATOLOGICAL Hx Musculoskeletal Disorders: No - GASTROINTESTINAL Hx Gastrointestinal Disorders: No - GENITOURINARY/GYNECOLOGICAL Hx Genitourinary Disorders: Yes Hx Incontinence: Yes (NO LONGER) - PSYCHIATRIC Hx Substance Use: No - SURGICAL HISTORY Hx Surgeries: Yes Hx Hysterectomy: Yes Other/Comment: laser varicose vein sx cystoscopy A/P REPAIR - ANESTHESIA Hx Anesthesia: Yes Hx Anesthesia Reactions: No Hx Malignant Hyperthermia: No Meds Allergies/Adverse Reactions: Allergies Allergy/AdvReac Type Severity Reaction Status Date / Time FISH Allergy Intermediate RASH Verified 11/18/17 07:51 Penicillins Allergy RASH Verified 11/18/17 07:51 hydromorphone AdvReac ITCHING Verified 11/18/17 07:51 SEAFOOD Allergy Intermediate RASH Uncoded 11/18/17 07:51 - Medications Medications: Current Medications Amlodipine Besylate (Norvasc) 2.5 mg PO DAILY TASH Enoxaparin Sodium (Lovenox) 40 mg SC DAILY TASH Ergocalciferol (Drisdol 50,000 Intl Units Cap) 1 cap PO Q7D TASH Sodium Chloride (Sodium Chloride 0.9%) 1,000 mls @ 100 mls/hr IV .Q10H ONE Stop: 11/18/17 18:20 Last Admin: 11/18/17 10:00 Dose: 100 mls/hr Sodium Chloride (Sodium Chloride 0.9%) 500 mls @ 80 mls/hr IV .Q6H15M TASH Last Admin: 11/18/17 16:29 Dose: 80 mls/hr Ciprofloxacin (Cipro 400mg/200ml Dsw) 400 mg in 200 mls @ 133 mls/hr IVPB Q12H TASH PRN Reason: Protocol Ondansetron HCl (Zofran Inj) 4 mg IVP Q6 PRN PRN Reason: nausea Physical Exam - Constitutional Appears: Non-toxic - Head Exam Head Exam: NORMAL INSPECTION - Eye Exam Eye Exam: Normal appearance - ENT Exam ENT Exam: Mucous Membranes Moist - Neck Exam Neck exam: Positive for: Full Rom - Respiratory Exam Respiratory Exam: NORMAL BREATHING PATTERN - Cardiovascular Exam Cardiovascular Exam: REGULAR RHYTHM - GI/Abdominal Exam GI & Abdominal Exam: Normal Bowel Sounds - Rectal Exam Rectal Exam: Deferred - Extremities Exam Extremities exam: Negative for: pedal edema - Back Exam Back exam: NORMAL INSPECTION - Neurological Exam Neurological exam: Alert, Oriented x3 - Psychiatric Exam Psychiatric exam: Normal Affect - Skin Skin Exam: Normal Color Results - Vital Signs Recent Vital Signs: Last Vital Signs Temp 98.2 F 11/18/17 15:38 Pulse 74 11/18/17 15:38 Resp 20 11/18/17 15:38 BP 123/73 11/18/17 15:38 Pulse Ox 96 11/18/17 15:38 - Labs Result Diagrams: 11/18/17 08:59 11/18/17 08:59 Labs: Laboratory Results - last 24 hr 11/18/17 11/18/17 11/18/17 07:41 08:59 08:59 WBC 8.5 RBC 4.37 Hgb 13.5 Hct 40.1 MCV 91.8 MCH 30.8 MCHC 33.5 RDW 12.6 Plt Count 220 MPV 9.8 Neut % (Auto) 75.4 H Lymph % (Auto) 18.8 L [place] % (Auto) 4.2 Eos % (Auto) 1.2 Baso % (Auto) 0.4 Neut # (Auto) 6.4 Lymph # (Auto) 1.6 [place] # (Auto) 0.4 Eos # (Auto) 0.1 Baso # (Auto) 0.0 Sodium 139 Potassium 4.6 Chloride 103 Carbon Dioxide 25 Anion Gap 15 BUN 16 Creatinine 0.5 L Est GFR ( Amer) > 60 Est GFR (Non-Af Amer) > 60 POC Glucose (mg/dL) 153 H Random Glucose 142 H Calcium 9.3 Total Bilirubin 1.6 H AST 38 H ALT 23 Alkaline Phosphatase 94 Troponin I < 0.0120 Total Protein 7.5 Albumin 4.3 Globulin 3.1 Albumin/Globulin Ratio 1.4 Urine Color Urine Clarity Urine pH Ur Specific [place] Urine Protein Urine Glucose (UA) Urine Ketones Urine Blood Urine Nitrate Urine Bilirubin Urine Urobilinogen Ur Leukocyte Esterase Urine WBC (Auto) Urine RBC (Auto) Ur Squamous Epith Cells Urine Bacteria 11/18/17 09:02 WBC RBC Hgb Hct MCV MCH MCHC RDW Plt Count MPV Neut % (Auto) Lymph % (Auto) [place] % (Auto) Eos % (Auto) Baso % (Auto) Neut # (Auto) Lymph # (Auto) [place] # (Auto) Eos # (Auto) Baso # (Auto) Sodium Potassium Chloride Carbon Dioxide Anion Gap BUN Creatinine Est GFR ( Amer) Est GFR (Non-Af Amer) POC Glucose (mg/dL) Random Glucose Calcium Total Bilirubin AST ALT Alkaline Phosphatase Troponin I Total Protein Albumin Globulin Albumin/Globulin Ratio Urine Color Yellow Urine Clarity Hazy Urine pH 7.0 Ur Specific [place] 1.012 Urine Protein Negative Urine Glucose (UA) Normal Urine Ketones Trace Urine Blood 3+ H Urine Nitrate Negative Urine Bilirubin Negative Urine Urobilinogen Normal Ur Leukocyte Esterase 3+ H Urine WBC (Auto) 23 H Urine RBC (Auto) 42 H Ur Squamous Epith Cells 26 H Urine Bacteria Occ H - EKG Data EKG Interpreted by: Myself Assessment & Plan (1) Dizziness Assessment and Plan: likely medication induced. will monitor Status: Acute (2) Atrial fibrillation Assessment and Plan: currently AV sequential pacemaker. continue medical therapy likely discharge tomorrow Status: Acute
[2017-11-18 19:01] LABS: SQUAMOUS EPITHIAL < 1 /hpf (0-5); URINE BILIRUBIN NEGATIVE (NEGATIVE); URINE BLOOD NEGATIVE (NEGATIVE); URINE CLARITY Clear (Clear); URINE COLOR Straw (YELLOW); URINE GLUCOSE (UA) NORMAL (Normal); URINE LEUKOCYTE ESTERASE NEG Leu/uL (Negative); URINE PROTEIN NEGATIVE (NEGATIVE); URINE UROBILINOGEN NORMAL mg/dL (0.2-1.0)
[2017-11-19 04:25] VITALS: TEMP 98.1
[2017-11-19] MEDS ORDERED: Ciprofloxacin 400mg/200ml D5W 400 MG/200 ML BAG IVPB SCH (05:00)
[2017-11-19] MEDS: Sodium Chloride 0.9% 500 ML IV SCH (07:07)
[2017-11-19 08:04] LABS: ALB/GLOB RATIO 1.4 (1.0-2.1); ALBUMIN 3.6 g/dL (3.5-5.0); ALT/SGPT 18 U/L (9-52); AST/SGOT 21 U/L (14-36); BLOOD UREA NITROGEN 12 mg/dL (7-17); CALCIUM 9.1 mg/dl (8.6-10.4); GFR NON-AFRICAN AMERICAN > 60
[2017-11-19 08:12] VITALS: BP 122/74; PULSE 70; O2SAT 95
[2017-11-19] MEDS ORDERED: Potassium Chloride 20 mEq ER Tab PO ONE (09:27)
[2017-11-19] MEDS ORDERED: Pneumococcal 23-Valent Vaccine IM ONE (10:00)
[2017-11-19] MEDS ORDERED: Ergocalciferol 50,000 Intl Units Cap PO SCH (10:00)
[2017-11-19] MEDS ORDERED: Enoxaparin 40 mg Syringe SC SCH (10:00)
[2017-11-19 11:28] LABS: BASO % 0.4 % (0.0-2.0); EOS # 0.2 K/uL (0.0-0.7); HEMOGLOBIN 12.9 g/dL (11.0-16.0); LYMPH # 1.8 K/uL (1.0-4.3); LYMPH % 32.3 % (20.0-40.0); MEAN CORPUSCULAR HEMOGLOBIN 31.3 pg (27.0-31.0); MEAN CORPUSCULAR HGB CONC 34.4 g/dL (33.0-37.0); MEAN PLATELET VOLUME 10.1 fL (7.2-11.7); MONO # 0.4 K/uL (0.0-0.8); MONO % 7.3 % (0.0-10.0); NEUT # 3.2 K/uL (1.8-7.0); RBC 4.13 Mil/uL (3.80-5.20); RED CELL DISTRIBUTION WIDTH 12.8 % (11.5-14.5); WHITE BLOOD COUNT 5.7 K/uL (4.8-10.8)
--- NOTE | 2017-11-19 14:35 | CARD ---
APPROVED REPORT Date of service: 11/18/2017 EKG Measurement Heart [id number] [id number] <Conclusion> AV dual-paced rhythm Abnormal ECG
--- NOTE | 2017-11-19 14:35 | CARD ---
APPROVED REPORT Date of service: 11/18/2017 EKG Measurement Heart [id number] [id number] <Conclusion> AV dual-paced rhythm Abnormal ECG
--- NOTE | 2017-11-19 22:24 | CP.PCM.DIS ---
<Anthony Cummins - Last Filed: 11/19/17 22:17> Provider - Provider Date of Admission: 11/18/17 11:49 Attending physician: Hieu Taylor DO Primary care physician: Dr. Sky Consults: Quin Walters Time Spent in preparation of Discharge (in minutes): 45 Diagnosis - Discharge Diagnosis (1) Lightheadedness Status: Acute Priority: Medium (2) UTI (urinary tract infection) Status: Acute Priority: Medium Hospital Course - Lab Results Lab Results: Most Recent Lab Values WBC 5.7 K/uL (4.8-10.8) 11/19/17 11:17 RBC 4.13 Mil/uL (3.80-5.20) 11/19/17 11:17 Hgb 12.9 g/dL (11.0-16.0) 11/19/17 11:17 Hct 37.6 % (34.0-47.0) 11/19/17 11:17 MCV 91.0 fL (81.0-99.0) 11/19/17 11:17 MCH 31.3 pg (27.0-31.0) H 11/19/17 11:17 MCHC 34.4 g/dL (33.0-37.0) 11/19/17 11:17 RDW 12.8 % (11.5-14.5) 11/19/17 11:17 Plt Count 221 K/uL (130-400) 11/19/17 11:17 MPV 10.1 fL (7.2-11.7) 11/19/17 11:17 Neut % (Auto) 57.0 % (50.0-75.0) 11/19/17 11:17 Lymph % (Auto) 32.3 % (20.0-40.0) 11/19/17 11:17 [place] % (Auto) 7.3 % (0.0-10.0) 11/19/17 11:17 Eos % (Auto) 3.0 % (0.0-4.0) 11/19/17 11:17 Baso % (Auto) 0.4 % (0.0-2.0) 11/19/17 11:17 Neut # (Auto) 3.2 K/uL (1.8-7.0) 11/19/17 11:17 Lymph # (Auto) 1.8 K/uL (1.0-4.3) 11/19/17 11:17 [place] # (Auto) 0.4 K/uL (0.0-0.8) 11/19/17 11:17 Eos # (Auto) 0.2 K/uL (0.0-0.7) 11/19/17 11:17 Baso # (Auto) 0.0 K/uL (0.0-0.2) 11/19/17 11:17 Sodium 142 mmol/L (132-148) 11/19/17 06:35 Potassium 3.5 mmol/L (3.6-5.2) L 11/19/17 06:35 Chloride 106 mmol/L (98-107) 11/19/17 06:35 Carbon Dioxide 27 mmol/L (22-30) 11/19/17 06:35 Anion Gap 13 (10-20) 11/19/17 06:35 BUN 12 mg/dL (7-17) 11/19/17 06:35 Creatinine 0.7 mg/dL (0.7-1.2) 11/19/17 06:35 Est GFR ( Amer) > 60 11/19/17 06:35 Est GFR (Non-Af Amer) > 60 11/19/17 06:35 POC Glucose (mg/dL) 153 mg/dL (65-110) H 11/18/17 07:41 Random Glucose 111 mg/dL (65-105) H 11/19/17 06:35 Calcium 9.1 mg/dl (8.6-10.4) 11/19/17 06:35 Total Bilirubin 1.2 mg/dL (0.2-1.3) 11/19/17 06:35 AST 21 U/L (14-36) 11/19/17 06:35 ALT 18 U/L (9-52) 11/19/17 06:35 Alkaline Phosphatase 82 U/L (38-126) 11/19/17 06:35 Troponin I < 0.0120 ng/mL (0.00-0.120) 11/18/17 21:46 Total Protein 6.1 g/dL (6.3-8.3) L 11/19/17 06:35 Albumin 3.6 g/dL (3.5-5.0) 11/19/17 06:35 Globulin 2.5 gm/dL (2.2-3.9) 11/19/17 06:35 Albumin/Globulin Ratio 1.4 (1.0-2.1) 11/19/17 06:35 TSH 3rd Generation 0.26 mIU/L (0.46-4.68) L 11/18/17 16:29 Urine Color Straw (YELLOW) 11/18/17 18:34 Urine Clarity Clear (Clear) 11/18/17 18:34 Urine pH 7.0 (5.0-8.0) 11/18/17 18:34 Ur Specific Knott 1.008 (1.003-1.030) 11/18/17 18:34 Urine Protein Negative mg/dL (NEGATIVE) 11/18/17 18:34 Urine Glucose (UA) Normal mg/dL (Normal) 11/18/17 18:34 Urine Ketones 1+ mg/dL (NEGATIVE) H 11/18/17 18:34 Urine Blood Negative (NEGATIVE) 11/18/17 18:34 Urine Nitrate Negative (NEGATIVE) 11/18/17 18:34 Urine Bilirubin Negative (NEGATIVE) 11/18/17 18:34 Urine Urobilinogen Normal mg/dL (0.2-1.0) 11/18/17 18:34 Ur Leukocyte Esterase Neg Ryele/uL (Negative) 11/18/17 18:34 Urine WBC (Auto) 1 /hpf (0-5) 11/18/17 18:34 Urine RBC (Auto) 1 /hpf (0-3) 11/18/17 18:34 Ur Squamous Epith Cells < 1 /hpf (0-5) 11/18/17 18:34 Urine Bacteria Occ (<OCC) H 11/18/17 09:02 - Hospital Course Hospital Course: PGY-[address] Taylor Patient is a 77 year old female with past medical history of atrial fibrillation s/p pacemaker/AICD (01/30) and HTN who presented to [facility] on 11/18 complaining of dizziness, nausea, and vomitus. Per patient, tooth extraction was performed day prior to presentation an patient was taking new medication Tramadol for pain. Symptoms of dizziness, lightheadedness, vertigo, nausea, and nonbilious nonhematemesis vomiting x6 began after Tramadol ingestion. In the ED EKG showed paced rhythm and troponins x1 negative. Nonconstrast head CT was nonremarkable. In the ED a UA was performed which was positive for blood +3, positive for leukocyte esterase +3, high WBC (23), high RBC (42), squamous epithelial cells (26), and occasional bacteria. On hospital day one patient was medically treated for nausea and given IVF. Chronic medical conditions were managed with appropriate medications. Appropriate prophylactic care was provided. Patient was given IV ciprofloxacin for initial UA. Repeat UA was performed with urine obtained from straight catheterization and showed only positive ketones +1. Because of negative second UA, ciprofloxacin was discontinued. During hospital stay EKG x2 revealed paced rhythm and troponins were negative x3. Patient's artifacts conservator Dr. Malcolm saw patient on hospital day 1 and determined patient's symptoms not of cardiac etiology but instead most likely adverse reaction from tramadol. Dr. Malcolm recommended discharge on hospital day 2. On hospital day 2 patient reported resolution of dizziness, nausea, and other associated symptoms. Patient was hemodynamically stable and physical exam was unremarkable. Per Dr. Taylor and consultants, the patient was medically optimized and stable for discharge on hospital day 2. Above is a summary of the patient's hospital course. Please refer to EMR for full details and further information. Patient is to continue all home medications with the exception of Tramadol, due to adverse reaction. Recommended patient to follow up with PMD in 3-5 days and to return to the emergency room if symptoms return and/or worsen. Discharge Medications: ASA 81mg PO Daily Drisol 1 cap 50,000 iu PO QWK Amlodipine 2.5mg PO Daily Patient seen and case discussed in detail with attending physician, Dr. Claudia Cummins PGY1 Discharge Exam - Head Exam Head Exam: NORMAL INSPECTION - Additional Findings Additional findings: - Constitutional Appears: Non-toxic, No Acute Distress - Head Exam Head Exam: ATRAUMATIC, NORMAL INSPECTION - Eye Exam Eye Exam: EOMI, Normal appearance Pupil Exam: NORMAL ACCOMODATION, PERRL - ENT Exam ENT Exam: Mucous Membranes Moist, Normal Exam - Respiratory Exam Respiratory Exam: Clear to Auscultation Bilateral, NORMAL BREATHING PATTERN. absent: Decreased Breath Sounds - Cardiovascular Exam Cardiovascular Exam: REGULAR RHYTHM, +S1, +S2 - GI/Abdominal Exam GI & Abdominal Exam: Normal Bowel Sounds, Soft. absent: Tenderness - Extremities Exam Extremities exam: Positive for: normal capillary refill, normal inspection, pedal pulses present. Negative for: pedal edema - Neurological Exam Neurological exam: Alert, CN II-XII Intact, Normal Gait, Oriented x3, Reflexes Normal Additional comments: +motor strength fully intact, no pronator drift, normal finger to nose - Psychiatric Exam Psychiatric exam: Normal Affect, Normal Mood - Skin Skin Exam: Dry, Intact, Normal Color, Warm Discharge Plan - Follow Up Plan Condition: GOOD Disposition: HOME/ ROUTINE Instructions: Atrial Fibrillation, Dizziness, Nonvertigo, (DC), Urinary Tract Infection in Women (DC) Additional Instructions: Patient is medically optimized for discharge, per Dr. Taylor. Patient is to follow-up with primary care physician, Dr. Sky within 3-5 days of discharge. Patient is to continue home medications as prescribed with the following exception: - Discontinue: Tramadol Patient is to return to the ED if symptoms return. Referrals: Juan Pablo Sky MD [Staff Provider] - Quin Malcolm MD [Staff Provider] - <Hieu Taylor - Last Filed: 11/20/17 13:17> Provider - Provider Date of Admission: 11/18/17 11:49 Attending physician: Hieu Taylor DO Hospital Course - Lab Results Lab Results: Micro Results 11/18/17 12:40 Urine,Clean Catch Urine Culture - Final <10,000 CFU/ML. MULTIPLE SPECIES. PROBABLE CONTAMINATION. Most Recent Lab Values WBC 5.7 K/uL (4.8-10.8) 11/19/17 11:17 RBC 4.13 Mil/uL (3.80-5.20) 11/19/17 11:17 Hgb 12.9 g/dL (11.0-16.0) 11/19/17 11:17 Hct 37.6 % (34.0-47.0) 11/19/17 11:17 MCV 91.0 fL (81.0-99.0) 11/19/17 11:17 MCH 31.3 pg (27.0-31.0) H 11/19/17 11:17 MCHC 34.4 g/dL (33.0-37.0) 11/19/17 11:17 RDW 12.8 % (11.5-14.5) 11/19/17 11:17 Plt Count 221 K/uL (130-400) 11/19/17 11:17 MPV 10.1 fL (7.2-11.7) 11/19/17 11:17 Neut % (Auto) 57.0 % (50.0-75.0) 11/19/17 11:17 Lymph % (Auto) 32.3 % (20.0-40.0) 11/19/17 11:17 [place] % (Auto) 7.3 % (0.0-10.0) 11/19/17 11:17 Eos % (Auto) 3.0 % (0.0-4.0) 11/19/17 11:17 Baso % (Auto) 0.4 % (0.0-2.0) 11/19/17 11:17 Neut # (Auto) 3.2 K/uL (1.8-7.0) 11/19/17 11:17 Lymph # (Auto) 1.8 K/uL (1.0-4.3) 11/19/17 11:17 [place] # (Auto) 0.4 K/uL (0.0-0.8) 11/19/17 11:17 Eos # (Auto) 0.2 K/uL (0.0-0.7) 11/19/17 11:17 Baso # (Auto) 0.0 K/uL (0.0-0.2) 11/19/17 11:17 Sodium 142 mmol/L (132-148) 11/19/17 06:35 Potassium 3.5 mmol/L (3.6-5.2) L 11/19/17 06:35 Chloride 106 mmol/L (98-107) 11/19/17 06:35 Carbon Dioxide 27 mmol/L (22-30) 11/19/17 06:35 Anion Gap 13 (10-20) 11/19/17 06:35 BUN 12 mg/dL (7-17) 11/19/17 06:35 Creatinine 0.7 mg/dL (0.7-1.2) 11/19/17 06:35 Est GFR ( Amer) > 60 11/19/17 06:35 Est GFR (Non-Af Amer) > 60 11/19/17 06:35 POC Glucose (mg/dL) 153 mg/dL (65-110) H 11/18/17 07:41 Random Glucose 111 mg/dL (65-105) H 11/19/17 06:35 Calcium 9.1 mg/dl (8.6-10.4) 11/19/17 06:35 Total Bilirubin 1.2 mg/dL (0.2-1.3) 11/19/17 06:35 AST 21 U/L (14-36) 11/19/17 06:35 ALT 18 U/L (9-52) 11/19/17 06:35 Alkaline Phosphatase 82 U/L (38-126) 11/19/17 06:35 Troponin I < 0.0120 ng/mL (0.00-0.120) 11/18/17 21:46 Total Protein 6.1 g/dL (6.3-8.3) L 11/19/17 06:35 Albumin 3.6 g/dL (3.5-5.0) 11/19/17 06:35 Globulin 2.5 gm/dL (2.2-3.9) 11/19/17 06:35 Albumin/Globulin Ratio 1.4 (1.0-2.1) 11/19/17 06:35 TSH 3rd Generation 0.26 mIU/L (0.46-4.68) L 11/18/17 16:29 Urine Color Straw (YELLOW) 11/18/17 18:34 Urine Clarity Clear (Clear) 11/18/17 18:34 Urine pH 7.0 (5.0-8.0) 11/18/17 18:34 Ur Specific K[place]t 1.008 (1.003-1.030) 11/18/17 18:34 Urine Protein Negative mg/dL (NEGATIVE) 11/18/17 18:34 Urine Glucose (UA) Normal mg/dL (Normal) 11/18/17 18:34 Urine Ketones 1+ mg/dL (NEGATIVE) H 11/18/17 18:34 Urine Blood Negative (NEGATIVE) 11/18/17 18:34 Urine Nitrate Negative (NEGATIVE) 11/18/17 18:34 Urine Bilirubin Negative (NEGATIVE) 11/18/17 18:34 Urine Urobilinogen Normal mg/dL (0.2-1.0) 11/18/17 18:34 Ur Leukocyte Esterase Neg Rylee/uL (Negative) 11/18/17 18:34 Urine WBC (Auto) 1 /hpf (0-5) 11/18/17 18:34 Urine RBC (Auto) 1 /hpf (0-3) 11/18/17 18:34 Ur Squamous Epith Cells < 1 /hpf (0-5) 11/18/17 18:34 Urine Bacteria Occ (<OCC) H 11/18/17 09:02 Attending/Attestation - Attestation I have personally seen and examined this patient.: Yes I have fully participated in the care of the patient.: Yes I have reviewed all pertinent clinical information, including history, physical exam and plan: Yes Notes (Text): 11/20/17 13:15 Medical attending: Patient was seen and examined by me, Agree with the above note by the resident The patient was not in any distress when we came ands aw her. She reported no acute events overnight On exam we also asked her to walk with us and she was able to do so without becomming dizzy, denied chest pain, denied palpitations, denied shortness of breath Likley this was all due to her recent medication Tramadol given to her after the oral procedures. Hieu Taylor
== END 2017-11-19 15:16 | disposition home or self-care (01) ==
LOC: C.ER 07:33 → C.9E 11:49 → C.6T 14:29
PROVIDERS: ADMIT Hospitalist; ATTEND Hospitalist
DX: N39.0 Urinary tract infection, site not specified (principal); R42 Dizziness and giddiness; I10 Essential (primary) hypertension; E55.9 Vitamin D deficiency, unspecified; I48.91 Unspecified atrial fibrillation; Z95.0 Presence of cardiac pacemaker
CPT/HCPCS: 36415; 70450; 80053; 81001; 82948; 84443; 84484; 85025; 87086; 93005; 96360; 96365; 96366; 96374; 99285; G0378; J0744; J2405; J7030; J7040